=== PATIENT | male | born 1985 | race Caucasian/White ===

== ENCOUNTER 2020-03-14 05:00 | Emergency (ER) | payer OTHER ==
[~2020-03-14] VITALS: Ht 160 cm; Wt 59.9 kg
[2020-03-14 05:13] VITALS: BP 118/64
--- NOTE | 2020-03-14 05:24 | NUR ---
PT AMBULATED TO BED 7 WITH STEADY GAIT
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
--- NOTE | 2020-03-14 05:45 | NUR ---
[employer] AT BEDSIDE SPEAKING WITH PT. PD STATES PT DOES NOT WANT TO FILE CHARGES.
[2020-03-14 07:17] VITALS: BP 118/64
== END 2020-03-14 07:17 | disposition home or self-care (01) ==
LOC: MED 05:00
DX: S00.03XA Contusion of scalp, initial encounter (principal); Y08.89XA Assault by other specified means, initial encounter; Y93.89 Activity, other specified; Y92.89 Other specified places as the place of occurrence of the external cause; Y99.8 Other external cause status
CPT/HCPCS: 70450; 82948; 99284

== ENCOUNTER 2020-04-01 21:52 | Emergency (ER) | payer SELFPAY ==
[~2020-04-01] VITALS: Ht 162.6 cm; Wt 54.4 kg
[2020-04-01 21:54] VITALS: BP 112/71
--- NOTE | 2020-04-01 22:48 | NUR ---
pt ambulated to bed 04 with steady gait.
--- NOTE | 2020-04-01 22:49 | NUR ---
PT AMBULATED TO RESTROOM W/ STEADY GAIT
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
--- NOTE | 2020-04-01 23:17 | NUR ---
DR. LEONARD AT BEDSIDE FOR EVALUATION.
--- NOTE | 2020-04-01 23:23 | NUR ---
PROVIDED PT WATER FOR PO CHALLENGE.
--- NOTE | 2020-04-01 23:25 | NUR ---
PT HAS KEPT DOWN WATER AT THIS TIME. NO VOMITING NOTED. PT RESTING IN BED LOCKED AND IN LOWEST POSITION, HOB ELEVATED , SIDE RAIL X1 . VSS.
--- NOTE | 2020-04-01 23:29 | NUR ---
PT HAS KEPT DOWN FLUID AT THIS TIME. NO VOMIT NOTED. PT SLEEPING IN BED, LOCKED AND IN LOWEST POSITION, AROUSABLE TO VERBAL STIMULATION , HOB ELEVATED , VISIBLE RISE AND FALL OF CHEST, RR EVEN AND UNLABORED, SIDE RAIL X1.
--- NOTE | 2020-04-01 23:31 | NUR ---
PER DR. LEONARD , XRAY NOT NEEDED AT THIS TIME. PT OK TO BE DISCHARGED.
[2020-04-01 23:34] VITALS: BP 112/71
--- NOTE | 2020-04-01 23:34 | NUR ---
Patient discharged with v/s stable. Written and verbal after care instructions given and explained. Patient verbalized understanding. Ambulatory with steady gait. All questions addressed prior to discharge. Advised to follow up with PMD.
== END 2020-04-01 23:34 | disposition home or self-care (01) ==
LOC: MED 21:52
DX: R10.9 Unspecified abdominal pain (principal); I10 Essential (primary) hypertension; Z02.89 Encounter for other administrative examinations
CPT/HCPCS: 81002; 99281; 99282